=== PATIENT | male | born 1955 | race African-American/Black ===

== ENCOUNTER 2017-10-15 11:50 | Emergency (ER) | payer MEDICAID ==
[2017-10-15] MEDS ORDERED: TUBERCULIN,PURIF.PROT.DERIV. 5 TU/0.1 ML TEST 1 ML VIAL ID ONE (13:53)
--- NOTE | 2017-10-15 14:27 | RADIOLOGY REPORT (SQ) ---
EXAM DESCRIPTION: CHEST PA/LAT COMPLETED DATE/TIME: 10/15/2017 2:14 pm REASON FOR STUDY: exposure to tb COMPARISON: None. EXAM PARAMETERS: NUMBER OF VIEWS: two views TECHNIQUE: Digital Frontal and Lateral radiographic views of the chest acquired. RADIATION DOSE: NA LIMITATIONS: none FINDINGS: LUNGS AND PLEURA: No opacities, masses or pneumothorax. No pleural effusion. MEDIASTINUM AND HILAR STRUCTURES: No masses or contour abnormalities. HEART AND VASCULAR STRUCTURES: Heart normal size. No evidence for failure. BONES: No acute findings. HARDWARE: None in the chest. OTHER: No other significant finding. IMPRESSION: NO SIGNIFICANT RADIOGRAPHIC FINDING IN THE CHEST. TECHNICAL DOCUMENTATION: JOB ID: [id number] [email or web address]- All Rights Reserved
--- NOTE | 2017-10-15 14:36 | ER Document Report ---
ED General - General Chief Complaint: Other Stated Complaint: ABNORMAL LAB Time Seen by Provider: 10/15/17 13:53 Mode of Arrival: Wheelchair Information source: Outside Facility Records Cannot obtain history due to: Mentally challenged Notes: Patient is nonverbal and cannot significantly contribute to the history. The home care worker with the patient is currently a resident brings him in for evaluation. She states they have had the patient since July, approximate 3 months ago. She states they recently found out that the former residents where the patient was approximate 3 months ago his roommate had tuberculosis. She would like the patient checked for tuberculosis today. She has not appreciated any other signs or symptoms from the patient. No known fevers or night sweats. She has not appreciated any cough cold or congestion. No no rashes. There is no known radiation of the symptoms. Nothing makes it better or worse. They are very mild. They are either constant or intermittent. TRAVEL OUTSIDE OF THE [place] IN LAST 30 DAYS: No - Related Data Allergies/Adverse Reactions: valsartan [From Ku6] Allergy (Verified 10/15/17 12:09) Past Medical History - Social History Smoking Status: Never Smoker Frequency of alcohol use: None Drug Abuse: None Family History: Other - Unable to obtain due to patient's mental condition Patient has suicidal ideation: No Patient has homicidal ideation: No - Past Medical History Cardiac Medical History: Reports: Hx Hypertension Renal/ Medical History: Denies: Hx Peritoneal Dialysis GI Medical History: Reports: Hx Gastroesophageal Reflux Disease Musculoskeltal Medical History: Reports Hx Arthritis Psychiatric Medical History: Reports: Hx Bipolar Disorder Review of Systems - Review of Systems -: Yes ROS unobtainable due to patient's medical condition Physical Exam - Vital signs Vitals: Temp Pulse Resp BP Pulse Ox 98.6 F 62 20 126/83 H 98 10/15/17 12:39 10/15/17 12:39 10/15/17 12:39 10/15/17 12:39 10/15/17 12:39 Interpretation: Normal - General General appearance: Appears well, Alert In distress: None - Respiratory Respiratory status: No respiratory distress Chest status: Nontender Breath sounds: Normal Chest palpation: Normal - Cardiovascular Rhythm: Regular Heart sounds: Normal auscultation Murmur: No - Abdominal Inspection: Normal Distension: No distension Bowel sounds: Normal Tenderness: Nontender Organomegaly: No organomegaly - Skin Skin Temperature: Warm Skin Moisture: Dry Skin Color: Normal Course - Vital Signs Vital signs: Temp Pulse Resp BP Pulse Ox 98.6 F 62 20 126/83 H 98 10/15/17 12:39 10/15/17 12:39 10/15/17 12:39 10/15/17 12:39 10/15/17 12:39 - Diagnostic Test Radiology reviewed: Image reviewed, Reports reviewed - Chest x-ray shows no evidence of infiltrate or edema Discharge - Discharge Clinical Impression: Exposure to TB Condition: Stable Disposition: HOME, SELF-CARE Additional Instructions: Please return to a medical provider in 48-72 hours to have your tuberculosis skin test read.
[2017-10-15 15:00] VITALS: BP 150/90
== END 2017-10-15 15:30 | disposition home or self-care (01) ==
LOC: ER 11:50 → EDBD 11:50 → ER 15:30
DX: Z20.1 Contact with and (suspected) exposure to tuberculosis (principal); I10 Essential (primary) hypertension
CPT/HCPCS: 99283; 96372; 71046; J3490